=== PATIENT | female | born 1985 | race Hispanic/Latino ===

== ENCOUNTER 2019-08-12 10:34 | Inpatient (IN) | payer OTHER ==
[~2019-08-12] VITALS: Ht 154.9 cm; Wt 94.0 kg
--- NOTE | ~2019-08-12 | OR ---
[facility] [address] [place], [place] [address] Draft DATE OF OPERATION: 08/19/2019 SURGEON: Sofya Fried MD SIGNAL ENGINEER: Kip Pate MD. PREOPERATIVE DIAGNOSES: Term , previous section x3, undesired fertility. POSTOPERATIVE DIAGNOSES: Term , previous section x3, undesired fertility with extensive adhesions. ANESTHESIA: Spinal. ESTIMATED BLOOD LOSS: 700 mL. DRAINS: Galvin catheter. INDICATIONS AND FINDINGS: The patient is a 34-year-old female, 4, para 3, who is status post prior x3, who was admitted at 39 weeks for repeat section. The patient did desire sterilization. An attempt was made as an interval sterilization after her last , but this could not be accomplished because of the adhesions. At the time of surgery, the lower uterine segment was extremely thin. There are adhesions of the omentum to the anterior abdominal wall. The baby was delivered via lower segment transverse uterine incision of a boy from the LOT position with Apgars of 9 and 9 and weight of 7 pounds 2 ounces. The tubes and ovaries otherwise appeared normal. DESCRIPTION OF PROCEDURE: The patient was prepped and draped in the supine position. The prior Pfannenstiel scar was excised and the subcu was incised using the cutting current on the cautery until the fascia was opened and identified. The incision was extended laterally. The inferior and superior fascial flaps were then created. The peritoneum was opened bluntly at the upper aspect and the incision carried down with some difficulty because of the scarring. The Ananda retractor could then be placed. The uterine incision was then made at the PATIENT NAME: MISAEL RAMIREZ OPERATIVE REPORT DATE OF : 89 REPORT #: [id number] PHYSICIAN: SOFYA FRIED MD PCP: NO PRIMARY CARE PHYSICIAN REPORT IS CONFIDENTIAL AND NOT TO BE RELEASED WITHOUT AUTHORIZATION [facility] [address] [place], [place] [address] Draft upper aspect of the peritoneal reflection. The baby was delivered with the above findings and handed off to the pediatric staff in attendance. The placenta was removed manually. The uterus was explored with a lap tape assuring no remaining fragments. The edges of the incision were identified and the uterus was closed using 0 Monocryl. For the most part, a single layer of a running locking stitch was placed. Additional fkuisv-ch-llcsyx were required near the right angle for control of bleeding. Following this, this area was packed and the patient's right tube was identified and grasped with Ale clamps. The mesosalpinx was divided and this was incised and sutures of 0 Vicryl were placed along the mesosalpinx to aid in for hemostasis. Cautery was also used to control bleeding. Following this, the patient's left tube was identified in the same manner and again the mesosalpinx was divided and incised and suture ligated with 0 Vicryl. The abdomen was then copiously irrigated and inspected and the tubal site appeared to be hemostatic. The uterine incision also appeared to be hemostatic. Because of the extensive adhesions in the raw area present, Tisseel was used to spray over the uterine incision as well as over the tubal sites. The ACell graft was also laid over the lower segment to aid in healing. The peritoneum was identified and was closed with a running suture of 3-0 Vicryl. The muscles were brought together with interrupted sutures of 0 Vicryl. Bleeding points were controlled with cautery. A kojyzp-nk-fjrpm of 0 Vicryl was also required at the upper left muscle fascial border to control bleeding. This area was then irrigated and good hemostasis was noted. ACell powder was sprinkled over the muscles to aid in healing. The fascia was then closed from each angle to the midline with a running suture of 0 Vicryl. The subcu was irrigated, inspected and bleeding points controlled with cautery. Interrupted sutures of 3-0 Vicryl were used to close the deep space and reapproximate the skin edges. The skin was closed with marialuisa. All sponge and needle counts were correct. She tolerated the procedure well and was taken to the recovery room in good condition. Sofya Fried MD PJW/MODL /[id number] cc: Kip Pate MD Copies: KIP PATE MD PATIENT NAME: MISAEL RAMIREZ OPERATIVE REPORT DATE OF : 89 REPORT #: [id number] PHYSICIAN: SOFYA FRIED MD PCP: NO PRIMARY CARE PHYSICIAN REPORT IS CONFIDENTIAL AND NOT TO BE RELEASED WITHOUT AUTHORIZATION [address] [address] Draft ~ PATIENT NAME: MISAEL RAMIREZ OPERATIVE REPORT DATE OF : 89 REPORT #: [id number] PHYSICIAN: SOFYA FRIED MD PCP: NO PRIMARY CARE PHYSICIAN REPORT IS CONFIDENTIAL AND NOT TO BE RELEASED WITHOUT AUTHORIZATION
[~2019-08-12 10:34] MED LIST: PRENATAL 19 CH1 EAC1 PO; VISTARIL25 MG PO
[2019-08-19] MEDS ORDERED: ADULT ASPIRIN R81 MG PO (07:20)
[2019-08-19] MEDS ORDERED: PRENATAL 19 CH1 EAC1 PO (07:20)
--- NOTE | 2019-08-19 09:23 | NUR ---
08/19/19 0923 Piedad Leon 0910-PATIENT ARRIVED TO ROOM 104 FOR PACU. PATIENT AWAKE DROWSY DENIES PAIN OR NAUSEA. RA 96%. SPINAL LEVEL AT T10 MAYCO PAD SMALL AMT OF DRAIANGE. FUNDUS MIDLINE UMBILICUS. S.O AT BEDSIDE. CASTRO CATHETER DRAINING. 0922-PATIENT BABY FBC RN AT BEDSIDE. RA 98% DENIES PAIN OR NAUSEA. REPORTS "LITTLE ITCHY BUT ITS OK"
--- NOTE | 2019-08-20 08:32 | PR ---
[facility] [address] [facility] [place], [place] [address] Signed PP Progress Notes Datetime Report Generated by DALIA: 08/20/2019 08:32 SUBJECTIVE: [id number] Pain: Within normal limits Nausea/Vomiting: Denies Flatus: Yes Vital Signs: [id number] Vital Signs: Reviewed; Within Normal Limits EXAM: [id number] Cardiovascular: Normal Respiratory: Normal Abdomen/Uterus: Abnormal Lochia: Normal Vulva/Perineum: Not Done Breasts: Not Done CVA Tenderness: Not Done Extremities: Normal Incision: Normal Progress: Abnormal Exam Comments: Abdomen with active BS. Fundus firm, NT @ U-1. H/H 8.8/26.9, WBC 8.6, plat 120k IMPRESSION/PLAN/PROCEDURES: [id number] Impression: Normal progression Other Impression: Thrombocytopenia, anemia Plan: consult Other Plans: Ambulate, shower Progress Notes: Overall doing well. Her platelets are a little lower. Will recheck 08/20. She is tolerating ambulation without symptoms. Signing Physician: Sofya Fried MD Copies: ~ *Electronically Signed* 08/20/19 0832 SOFYA FRIED MD PATIENT NAME: MISAEL RAMIREZ PROGRESS NOTE DATE OF : 89 PHYSICIAN: SOFYA FRIED MD RPT #: [id number] REPORT IS CONFIDENTIAL AND NOT TO BE RELEASED WITHOUT AUTHORIZATION
--- NOTE | 2019-08-21 11:06 | PATH ---
[facility] [address] [place], [place] [address] Signed SPECIMEN(S): A FALLOPIAN TUBES, BILATERAL SPECIMEN SOURCE: A. FALLOPIAN TUBES, BILATERAL CLINICAL HISTORY: Repeat . FINAL PATHOLOGIC DIAGNOSIS: Fallopian tubes, left and right, bilateral salpingectomy: - Two fallopian tubes with no histopathologic abnormality. NAL:cml:C2NR MICROSCOPIC EXAMINATION: Histologic sections of all submitted blocks are examined by light microscopy. These findings, together with the gross examination, support the pathologic diagnosis. GROSS DESCRIPTION: The specimen, labeled "Misael De La Crzu," is received in formalin and consists of two undesignated portions of fallopian tubes that measure 7.2 x 0.9 cm and 5.4 x 0.8 cm. The serosal surfaces are violaceous and smooth with delicate fimbriae. The second tube is inked. Cut sections reveal a pinpoint lumen. Student Officer sections are submitted in cassette (A1). FB (under the direct supervision of a pathologist) The Gross Description was prepared using a voice recognition system. The report was reviewed for accuracy; however, sound-alike word errors, addition and/or deletions may occur. If there is any question about this report, please contact Client Services. PERFORMING LABORATORY: The technical component was performed by [employer], [address] [place] [id number] (Director Of Strategy & Mobile: Chelsea Steele MD; CLIA# [id number]). Professional interpretation was performed by [facility], [address] [address] (CLIA# [id number]). Diagnostician: Stephy Vanessa MD Pathologist Electronically Signed 08/21/2019 PATIENT NAME: MISAEL DE LA CRUZ PATHOLOGY DATE OF : 89 REPORT #: [id number] PHYSICIAN: [facility] PCP: NO PRIMARY CARE PHYSICIAN REPORT IS CONFIDENTIAL AND NOT TO BE RELEASED WITHOUT AUTHORIZATION [address] [address] Signed Copies: ~ PATIENT NAME: MISAEL DE LA CRUZ PATHOLOGY DATE OF : 89 REPORT #: [id number] PHYSICIAN: [facility] PCP: NO PRIMARY CARE PHYSICIAN REPORT IS CONFIDENTIAL AND NOT TO BE RELEASED WITHOUT AUTHORIZATION
--- NOTE | 2019-08-21 12:29 | PR ---
[facility] [address] [place], [place] [address] Signed PP Progress Notes Datetime Report Generated by DALIA: 08/21/2019 12:29 SUBJECTIVE: [id number] Pain: Within normal limits Pain Comments: Lot of diarrhea with abdominal cramping overnight and this am Nausea/Vomiting: Denies Flatus: Yes Bowel Movement: Yes Vital Signs: [id number] Vital Signs: Reviewed Notable Details: intermittent HTN EXAM: [id number] Cardiovascular: Not Done Respiratory: Not Done Abdomen/Uterus: Abnormal Lochia: Normal Vulva/Perineum: Not Done Breasts: Not Done CVA Tenderness: Not Done Extremities: Normal Incision: Normal Progress: Abnormal Exam Comments: Abdomen with active BS. Fundus firm, NT @ U. H/H 8.2/25.3, WBC 8.9, plat 135k (plat 120 yest, 132 on admit) IMPRESSION/PLAN/PROCEDURES: [id number] Impression: Normal progression Other Impression: Diarrhea this am now resolved Plan: Discharge Other Plans: Ambulate, shower Progress Notes: Doing much better. She is ready for D/C. Signing Physician: Sofya Fried MD Copies: ~ *Electronically Signed* 08/21/19 1229 SOFYA FRIED MD PATIENT NAME: MISAEL RAMIREZ PROGRESS NOTE DATE OF : 89 PHYSICIAN: SOFYA FRIED MD RPT #: [id number] REPORT IS CONFIDENTIAL AND NOT TO BE RELEASED WITHOUT AUTHORIZATION
== END 2019-08-21 13:25 | disposition home or self-care (01) | DRG 785 ==
LOC: FBC 08-19 05:02
PROVIDERS: ADMIT Obstetrics & Gynecology
PROC: 0UT70ZZ Resection of Bilateral Fallopian Tubes, Open Approach (ICD-10-PCS; 2019-08-19)
PROC: 10D00Z1 Extraction of Products of Conception, Low, Open Approach (ICD-10-PCS; principal; 2019-08-19 06:45)
DX: O34.211 Maternal care for low transverse scar from previous cesarean delivery (principal); N85.8 Other specified noninflammatory disorders of uterus; Z3A.39 39 weeks gestation of pregnancy; Z37.0 Single live birth; Z30.2 Encounter for sterilization; O99.214 Obesity complicating childbirth; E66.9 Obesity, unspecified; O32.2XX0 Maternal care for transverse and oblique lie, not applicable or unspecified; O99.52 Diseases of the respiratory system complicating childbirth; J45.40 Moderate persistent asthma, uncomplicated; O90.81 Anemia of the puerperium; D64.9 Anemia, unspecified; O72.3 Postpartum coagulation defects; D69.6 Thrombocytopenia, unspecified; O99.89 Other specified diseases and conditions complicating pregnancy, childbirth and the puerperium; R19.7 Diarrhea, unspecified; Z79.82 Long term (current) use of aspirin; Z79.899 Other long term (current) drug therapy; Z88.1 Allergy status to other antibiotic agents; Z91.040 Latex allergy status
CPT/HCPCS: 01961; 36415; 85027; 88302; A9270; J0690; J1200; J1885; J2001; J2274; J2300; J2370; J2405; J2550; J2590; J3010; J7121

== ENCOUNTER 2020-11-03 11:48 | Emergency (ER) | payer OTHER ==
[~2020-11-03] VITALS: Ht 154.9 cm; Wt 102.1 kg
[~2020-11-03 11:48] MED LIST changes: +ADULT ASPIRIN R81 MG PO
[2020-11-03] MEDS ORDERED: VENTOLIN HFA18 GM ×3 (13:32→13:33)
== END 2020-11-03 14:55 | disposition home or self-care (01) ==
LOC: ED 11:48
DX: N13.2 Hydronephrosis with renal and ureteral calculous obstruction (principal); Z88.1 Allergy status to other antibiotic agents; Z79.82 Long term (current) use of aspirin
CPT/HCPCS: 74176; 80053; 81001; 83690; 84703; 85025; 96374; 96375; 99284-25; J1885; J2405; J7030

== ENCOUNTER 2021-04-11 09:33 | Emergency (ER) | payer OTHER ==
[~2021-04-11] VITALS: Ht 154.9 cm; Wt 102.1 kg
[~2021-04-11 09:33] MED LIST changes: +VENTOLIN HFA18 GM
== END 2021-04-11 10:30 | disposition home or self-care (01) ==
LOC: ED 09:33
DX: U07.1 COVID-19 (principal); R09.1 Pleurisy; Z88.1 Allergy status to other antibiotic agents; Z79.82 Long term (current) use of aspirin; Z79.899 Other long term (current) drug therapy; Z91.018 Allergy to other foods
CPT/HCPCS: 99284